=== PATIENT | female | born 1995 | race Caucasian/White ===

== ENCOUNTER 2018-12-27 12:46 | Emergency (ER) | payer BC, OTHER ==
[2018-12-27 12:59] VITALS: TEMP 98.1
[2018-12-27 13:49] LABS: Appearance,Urine Clear (Clear); Bilirubin,Urine Negative (Negative); Blood,Urine Negative (Negative); Color,Urine Yellow; Glucose,Urine (UA) Negative (Negative); Ketones,Urine Negative (Negative); Leukocyte Esterase,Urine Negative (Negative); Nitrite,Urine Negative (Negative); Protein,Urine Negative (Negative); Specific Gravity,Urine 1.005 (1.001-1.035); Urobilinogen,Urine <2.0 mg/dL (<2.0)
[2018-12-27 13:57] LABS: ALT 21 U/L (9-52); AST 30 U/L (14-36); African American GFR (CKD) >90 (>60 ml/min/1.73 sqM); Albumin 4.6 g/dL (3.5-5.0); Alkaline Phosphatase 42 U/L (38-126); Amylase 52 U/L (30-110); Anion Gap 9 mmol/L; Blood Urea Nitrogen 14 mg/dL (7-17); Calcium 9.4 mg/dL (8.4-10.2); Carbon Dioxide 26 mmol/L (22-30); Chloride 106 mmol/L (98-107); Glucose 86 mg/dL (74-99); Potassium 4.3 mmol/L (3.5-5.1); Sodium 141 mmol/L (137-145); Total Bilirubin 0.6 mg/dL (0.2-1.3); Total Protein 7.4 g/dL (6.3-8.2)
[2018-12-27] MEDS ORDERED: ONDANSETRON 4 MG/2 ML VIAL IVP STA (13:59)
[2018-12-27] MEDS ORDERED: KETOROLAC 30 MG/ML 1 ML VIAL IVP STA (13:59)
[2018-12-27] MEDS ORDERED: SODIUM CHLORIDE 0.9% 1,000 ML IV STA (14:00)
--- NOTE | 2018-12-27 14:17 | ED ---
General Adult HPI - General Chief complaint: Abdominal Pain Stated complaint: Abd pain Time Seen by Provider: 12/27/18 13:16 Source: patient, RN notes reviewed Mode of arrival: ambulatory Limitations: no limitations - History of Present Illness Initial comments: 23-year-old female without any [id number] year old female with a past medical history of asthma, GERD, ulcers, chronic constipation presents to the emergency department for a chief complaint of abdominal pain. Patient states that yesterday she felt nauseous all day. States that she started to have diarrhea as well at some point yesterday. Patient states she is having severe lower abd ominal pain. States yesterday this was around her umbilicus and today is more in her right lower quadrant. She also feels it in the right lower back. Denies fevers or chills. Denies history of ovarian cysts. Denies any dysuria.Patient has no other complaints at this time including shortness of breath, chest pain, headache, or visual changes. - Related Data Home Medications Medication Instructions Recorded Confirmed Fiber Gummies 2 tab PO DAILY PRN 07/05/15 07/05/15 Previous Rx's Medication Instructions Recorded Omeprazole [PriLOSEC] 40 mg PO AC-BRKFST #30 cap 07/07/15 Ondansetron [Zofran] 4 mg PO Q8HR PRN #10 tab 07/07/15 Ondansetron [Zofran ODT] 4 mg PO Q8HR PRN #15 tab 12/27/18 Allergies Allergy/AdvReac Type Severity Reaction Status Date / Time No Known Allergies Allergy Verified 12/27/18 12:57 Review of Systems ROS Statement: Those systems with pertinent positive or pertinent negative responses have been documented in the HPI. ROS Other: All systems not noted in ROS Statement are negative. Past Medical History Past Medical History: Asthma, GERD/Reflux Additional Past Medical History / Comment(s): ulcers, outgrown childhood asthma History of Any Multi-Drug Resistant Organisms: None Reported Past Surgical History: Tonsillectomy Past Psychological History: Anxiety Smoking Status: Never smoker Past Alcohol Use History: None Reported Past Drug Use History: None Reported - Past Family History Mother History Unknown: Yes Family Medical History: GERD/Reflux Additional Family Medical History / Comment(s): mom ulcerative colitis, pancreatitis, esohagitis, hiatal hernia General Exam Limitations: no limitations General appearance: alert, in no apparent distress Head exam: Present: atraumatic, normocephalic, normal inspection Eye exam: Present: normal appearance, PERRL, EOMI. Absent: scleral icterus, conjunctival injection, periorbital swelling ENT exam: Present: normal exam, mucous membranes moist Neck exam: Present: normal inspection, full ROM. Absent: tenderness, meningismus, lymphadenopathy Respiratory exam: Present: normal lung sounds bilaterally. Absent: respiratory distress, wheezes, rales, rhonchi, stridor Cardiovascular Exam: Present: regular rate, normal rhythm, normal heart sounds. Absent: systolic murmur, diastolic murmur, rubs, gallop, clicks GI/Abdominal exam: Present: soft, tenderness (Tenderness noted to the right lower quadrant suprapubic area), normal bowel sounds. Absent: distended, guarding, rebound, rigid Expanded GI/Abdominal exam: Present: obturator sign, Rovsing's sign, tenderness at McBurney's Point. Absent: heel tap sign, Prado's sign Neurological exam: Present: alert, oriented X3 Psychiatric exam: Present: normal affect, normal mood Course Vital Signs 12/27/18 12/27/18 12:58 15:58 Temperature 98.1 F Pulse Rate 87 76 Respiratory 18 16 Rate Blood Pressure 146/87 111/64 O2 Sat by Pulse 100 99 Oximetry Medical Decision Making - Medical Decision Making 23 old female with a past medical history of asthma, GERD, ulcers, chronic constipation presents to the emergency department for abdominal pain. States that yesterday she felt nauseous all day. States she started to have diarrhea as well. States she started having lower abdominal pain. Patient states this started around her umbilicus and migrated to her right lower quadrant. Also feels it in her right lower back. Denies fevers or chills. In exam patient does have right lower quadrant tenderness with a positive obturator sign. CBC CMP and urine are unremarkable. CT abdomen and pelvis shows with contrast shows fluid in the pelvis that may be physiologic. No evidence of appendicitis. She likely has a viral gastroenteritis. She was given IV hydration, antiemetics and pain medication. Patient currently then much better. She'll be discharged home with Zofran. Recommended follow up with primary care in 1-2 days. Recommended returning here if pain worsens or she has any other concerning symptoms. - Lab Data Result diagrams: 12/27/18 14:00 12/27/18 13:38 Lab Results 12/27/18 12/27/18 12/27/18 Range/Units 13:38 13:38 13:38 WBC (3.8-10.6) k/uL RBC (3.80-5.40) m/uL Hgb (11.4-16.0) gm/dL Hct (34.0-46.0) % MCV (80.0-100.0) fL MCH (25.0-35.0) pg MCHC (31.0-37.0) g/dL RDW (11.5-15.5) % Plt Count (150-450) k/uL Neutrophils % % Lymphocytes % % Monocytes % % Eosinophils % % Basophils % % Neutrophils # (1.3-7.7) k/uL Lymphocytes # (1.0-4.8) k/uL Monocytes # (0-1.0) k/uL Eosinophils # (0-0.7) k/uL Basophils # (0-0.2) k/uL Sodium 141 (137-145) mmol/L Potassium 4.3 (3.5-5.1) mmol/L Chloride 106 (98-107) mmol/L Carbon Dioxide 26 (22-30) mmol/L Anion Gap 9 mmol/L BUN 14 (7-17) mg/dL Creatinine 0.88 (0.52-1.04) mg/dL Est GFR (CKD-EPI)AfAm >90 (>60 ml/min/1.73 sqM) Est GFR (CKD-EPI)NonAf >90 (>60 ml/min/1.73 sqM) Glucose 86 (74-99) mg/dL Plasma Lactic Acid Deuce 1.1 (0.7-2.0) mmol/L Calcium 9.4 (8.4-10.2) mg/dL Total Bilirubin 0.6 (0.2-1.3) mg/dL AST 30 (14-36) U/L ALT 21 (9-52) U/L Alkaline Phosphatase 42 (38-126) U/L Total Protein 7.4 (6.3-8.2) g/dL Albumin 4.6 (3.5-5.0) g/dL Amylase 52 (30-110) U/L Lipase 114 (23-300) U/L Urine Color Urine Appearance (Clear) Urine pH (5.0-8.0) Ur Specific [place] (1.001-1.035) Urine Protein (Negative) Urine Glucose (UA) (Negative) Urine Ketones (Negative) Urine Blood (Negative) Urine Nitrite (Negative) Urine Bilirubin (Negative) Urine Urobilinogen (<2.0) mg/dL Ur Leukocyte Esterase (Negative) Urine HCG, Qual Not Detected (Not Detectd) 12/27/18 12/27/18 Range/Units 13:38 14:00 WBC 5.0 (3.8-10.6) k/uL RBC 4.83 (3.80-5.40) m/uL Hgb 14.8 (11.4-16.0) gm/dL Hct 45.2 (34.0-46.0) % MCV 93.7 (80.0-100.0) fL MCH 30.7 (25.0-35.0) pg MCHC 32.7 (31.0-37.0) g/dL RDW 14.6 (11.5-15.5) % Plt Count 190 (150-450) k/uL Neutrophils % 55 % Lymphocytes % 31 % Monocytes % 9 % Eosinophils % 2 % Basophils % 1 % Neutrophils # 2.7 (1.3-7.7) k/uL Lymphocytes # 1.5 (1.0-4.8) k/uL Monocytes # 0.4 (0-1.0) k/uL Eosinophils # 0.1 (0-0.7) k/uL Basophils # 0.0 (0-0.2) k/uL Sodium (137-145) mmol/L Potassium (3.5-5.1) mmol/L Chloride (98-107) mmol/L Carbon Dioxide (22-30) mmol/L Anion Gap mmol/L BUN (7-17) mg/dL Creatinine (0.52-1.04) mg/dL Est GFR (CKD-EPI)AfAm (>60 ml/min/1.73 sqM) Est GFR (CKD-EPI)NonAf (>60 ml/min/1.73 sqM) Glucose (74-99) mg/dL Plasma Lactic Acid Deuce (0.7-2.0) mmol/L Calcium (8.4-10.2) mg/dL Total Bilirubin (0.2-1.3) mg/dL AST (14-36) U/L ALT (9-52) U/L Alkaline Phosphatase (38-126) U/L Total Protein (6.3-8.2) g/dL Albumin (3.5-5.0) g/dL Amylase (30-110) U/L Lipase (23-300) U/L Urine Color Yellow Urine Appearance Clear (Clear) Urine pH 7.0 (5.0-8.0) Ur Specific [place] 1.005 (1.001-1.035) Urine Protein Negative (Negative) Urine Glucose (UA) Negative (Negative) Urine Ketones Negative (Negative) Urine Blood Negative (Negative) Urine Nitrite Negative (Negative) Urine Bilirubin Negative (Negative) Urine Urobilinogen <2.0 (<2.0) mg/dL Ur Leukocyte Esterase Negative (Negative) Urine HCG, Qual (Not Detectd) Disposition Clinical Impression: Nausea vomiting and diarrhea, Abdominal pain Disposition: HOME SELF-CARE Condition: Good Instructions (If sedation given, give patient instructions): Abdominal Pain (ED) Additional Instructions: Take Zofran as needed. Please follow up with primary care in 1-2 days. Please return to the emergency department if you have any worsening symptoms. Prescriptions: Ondansetron [Zofran ODT] 4 mg PO Q8HR PRN #15 tab PRN Reason: Nausea Is patient prescribed a controlled substance at d/c from ED?: No Referrals: Nonstaff,Physician [Primary Care Provider] - 1-2 days Time of Disposition: 15:49
[2018-12-27 14:56] LABS: Basophils % (A) 1 %; Eosinophils # (A) 0.1 k/uL (0-0.7); Eosinophils % (A) 2 %; HCT 45.2 % (34.0-46.0); HGB 14.8 gm/dL (11.4-16.0); Lymphocytes # (A) 1.5 k/uL (1.0-4.8); Lymphocytes % (A) 31 %; MCH 30.7 pg (25.0-35.0); MCHC 32.7 g/dL (31.0-37.0); MCV 93.7 fL (80.0-100.0); Mean Platelet Volume 7.5; Monocytes # (A) 0.4 k/uL (0-1.0); Monocytes % (A) 9 %; Neutrophils # (A) 2.7 k/uL (1.3-7.7); Neutrophils % (A) 55 %; Platelet Count 190 k/uL (150-450); RBC 4.83 m/uL (3.80-5.40); RDW 14.6 % (11.5-15.5)
--- NOTE | 2018-12-27 15:26 | CT ---
EXAMINATION TYPE: CT abdomen pelvis w con DATE OF EXAM: 12/27/2018 COMPARISON: CT 07/05/2015 HISTORY: Right lower quadrant pain CT DLP: 526.5 mGycm Automated exposure control for dose reduction was used. TECHNIQUE: Helical acquisition of images from the lung bases through the pelvis have been completed. CONTRAST: Performed without Oral Contrast and with IV Contrast, patient injected with 100 mL of Isovue 300. FINDINGS: LUNG BASES: No significant abnormality is appreciated. AORTA: No significant abnormality is appreciated. LIVER/GB: No significant abnormality is appreciated. PANCREAS: No significant abnormality is seen. SPLEEN: No significant abnormality is seen. ADRENALS: No significant abnormality is seen. KIDNEYS: No significant abnormality is seen. REPRODUCTIVE ORGANS: No significant abnormality is evident within the uterus, there are likely follic les associated with the ovaries BOWEL: No significant abnormality is seen. No evident appendicitis. FREE AIR: No Free Air visible. ASCITES: There is some free fluid noted within the pelvis.. PELVIC ADENOPATHY: None visualized. RETROPERITONEAL ADENOPATHY: No Retroperitoneal Adenopathy visible. URINARY BLADDER: No significant abnormality is seen. OSSEOUS STRUCTURES: No significant abnormality is seen. IMPRESSION: FLUID IN THE PELVIS MAY BE PHYSIOLOGIC.
[2018-12-27] MEDS ORDERED: MORPHINE SULFATE 4 MG/ML SYRINGE IVP STA (15:58)
[2018-12-27 16:00] VITALS: BP 111/64; PULSE 76; RESP 16
== END 2018-12-27 16:30 | disposition home or self-care (01) ==
LOC: EC 12:46
DX: R10.31 Right lower quadrant pain (principal); R11.2 Nausea with vomiting, unspecified; R19.7 Diarrhea, unspecified
CPT/HCPCS: 36415; 80053; 82150; 83605; 83690; 85025; 81003; 81025; 74177; 99284; 96374; 96375 ×2; J2270; J2405; J1885; Q9967

== ENCOUNTER → 2019-04-22 | Outpatient (CLI) | payer BC ==
[2019-04-22 11:11] LABS: Basophils # (A) 0.1 k/uL (0-0.2); Basophils % (A) 1 %; Eosinophils % (A) 0 %; HGB 14.1 gm/dL (11.4-16.0); Lymphocytes # (A) 2.5 k/uL (1.0-4.8); Lymphocytes % (A) 39 %; MCH 30.6 pg (25.0-35.0); MCHC 32.8 g/dL (31.0-37.0); MCV 93.4 fL (80.0-100.0); Mean Platelet Volume 7.1; Monocytes # (A) 0.3 k/uL (0-1.0); Monocytes % (A) 5 %; Neutrophils # (A) 3.4 k/uL (1.3-7.7); Neutrophils % (A) 52 %; Platelet Count 211 k/uL (150-450); RBC 4.61 m/uL (3.80-5.40); RDW 11.5 % (11.5-15.5); WBC 6.5 k/uL (3.8-10.6)
[2019-04-22 14:11] LABS: Total Eosinophil Count 19 #EOS/uL (150-300)
[2019-04-22 20:01] LABS: Immunoglobulin E 1.59 IU/mL (0.00-114.00)
[2019-04-22 20:31] LABS: Cat Epith & Dander IgE <0.10 kU/L; Dermato. farinae IgE <0.10 kU/L; Dog Dander IgE <0.10 kU/L
[2019-04-22 20:32] LABS: Alternaria alternata IgE <0.10 kU/L; Aspergillus fumagatus IgE <0.10 kU/L; Cladosporian herbarum IgE <0.10 kU/L; Cockroach IgE <0.10 kU/L; Maple (Box Elder) IgE <0.10 kU/L
[2019-04-22 20:34] LABS: Birch IgE <0.10 kU/L; Elm IgE <0.10 kU/L; Oak IgE <0.10 kU/L; Ragweed,Common IgE <0.10 kU/L; Red Top (Bentgrass) IgE <0.10 kU/L
== END | disposition home or self-care (01) ==
LOC: LABWHC1 10:28
PROVIDERS: ATTEND Internal Medicine
DX: J45.991 Cough variant asthma (principal)
CPT/HCPCS: 36415; 82785; 85008; 85025; 86003

== ENCOUNTER → 2019-05-07 | Outpatient (CLI) | payer BC ==
--- NOTE | 2019-05-07 14:58 | CT ---
EXAMINATION TYPE: CT sinus wo con DATE OF EXAM: 05/07/2019 COMPARISON: NONE HISTORY: Chronic sinusitis per order. Nasal congestion and tripping with headaches since September. CT DLP: 648.7 mGycm. Automated Exposure Control for Dose Reduction was Utilized. TECHNIQUE: CT scan of the sinuses is performed without contrast, axial images are obtained, coronal r eformatted images are also reviewed. FINDINGS: The mucosal thickening right maxillary sinus with air-fluid level is present. There is air- fluid level dependently in the left sphenoid sinus. There is some patchy dependent fluid in the poste rior right ethmoid sinus axial image 32. Bilateral frontal sinuses are clear. The ostiomeatal comple x is patent bilaterally on coronal image 18. Visualized portion of mastoid air cells show no abnormal opacification. The globes are intact bilate rally. Visualized brain parenchyma unremarkable. IMPRESSION: Bilateral acute paranasal sinus disease as detailed above.
== END | disposition home or self-care (01) ==
LOC: RADCTMAIN 14:33
PROVIDERS: ATTEND Internal Medicine
DX: J34.89 Other specified disorders of nose and nasal sinuses (principal)
CPT/HCPCS: 70486

== ENCOUNTER 2023-01-14 13:05 | Outpatient (CLI) | payer BC ==
[2023-01-14 15:01] VITALS: BP 124/73; PULSE 81; RESP 16; TEMP 97.8
--- NOTE | 2023-02-12 07:33 | P.MSEPDOC ---
Presenting Problems - Arrival Data Date of Arrival on Unit: 01/14/23 Time of Arrival on Unit: 13:01 Mode of Transport: Wheelchair - Complaint OB-Reason for Admission/Chief Complaint: Other Comment: pt arrived c/o possible carbon monoxide posioning. states she was working upstairs in a garage and around 930 am when they ran a 4 guillaume with the fumes and she got a little dizzy and lightheaded and a h/a .so she came in to be evualted. pts vitals sigs b/p 124/73 pulse 92 resp 16 andpulse ox 99%. pt alert orinted times 3 Medical History - Information : 1 Para: 0 Term: 0 : 0 Abortions: Spontaneous or Elective: 0 Number of Living Children: 0 - Gestational Age Gestational Age by DIAZ (wks/days): 29 Weeks and 5 Days Review of Systems - Review of Systems Constitutional: No problems Breast: No problems ENT: No problems Cardiovascular: No problems Respiratory: No problems Gastrointestinal: No problems Genitourinary: No problems Musculoskeletal: No problems Neurological: No problems Skin: No problems Comment: pt c/o of a H/A Vital Signs - Temperature Temperature: 97.8 F Temperature Source: Oral - Pulse Right Brachial Pulse Rate: 81 Pulse Assessment Method: Automatic Cuff - Respirations Respiratory Rate: 16 Oxygen Delivery Method: Room Air O2 Sat by Pulse Oximetry: 99 - Blood Pressure Right Arm Blood Pressure: 124/73 Blood Pressure Mean: 90 Blood Pressure Source: Automatic Cuff Medical Screen Scoring - Cervical Exam Membranes: Intact - Uterine Contractions Frequency From (mins): 0 Frequency To (mins): 0 Resting: Soft to palpation - Assessment - Baby A Baseline FHR: 130 Heart Rate - NICHD Category: Category I (Normal) NST: Reactive Physician Notification - Physician Notified Physician Notified Date: 01/14/23 Physician Notified Time: 14:15 Physician: DR LIDIA Beavers Order Received: Yes - Notification Comment Comment: MAY DISCHARGE TO HOME WITH INSTRUCTIONS Maternal Triage Index - Non-Urgent/Priority 4 Non-Urgent Priority 4: Yes Criteria Met for Priority 4: PT C/O POSSIBLE CARBONMONOXIDE POISIONING. PTS VITALS STABLE PT ALERT ORIENTED TIMES 3 RESP EASY AND UNLABORED. REACTIVE NST. PT STATES H/A IS LESS NOW SINCE THIS MORNING Disposition - Disposition OB Disposition: Discharge to home Discharge Date: 01/14/23 Discharge Time: 14:47 I agree with the RN Medical Screening Exam: Yes Case reviewed; plan agreed upon as documented in EMR&OBIX.: Yes Diagnosis: DIZZINESS AND GIDDINESS
== END 2023-01-14 14:47 | disposition home or self-care (01) ==
LOC: FBPOP 13:05
PROVIDERS: ATTEND Obstetrics & Gynecology
DX: O26.893 Other specified pregnancy related conditions, third trimester (principal); R42 Dizziness and giddiness; Z3A.29 29 weeks gestation of pregnancy; Z88.2 Allergy status to sulfonamides; Z88.8 Allergy status to other drugs, medicaments and biological substances
CPT/HCPCS: 59025; 99213

== ENCOUNTER 2023-03-07 11:47 | Outpatient (CLI) | payer BC ==
[2023-03-07 13:41] VITALS: BP 131/79; PULSE 96; RESP 18; TEMP 96.4
--- NOTE | 2023-03-09 13:02 | P.MSEPDOC ---
Presenting Problems - Arrival Data Date of Arrival on Unit: 03/07/23 Time of Arrival on Unit: 11:47 Mode of Transport: Wheelchair - Complaint OB-Reason for Admission/Chief Complaint: Possible Onset of Labor Comment: Pt states started 03/07/2023 at 0300 ctx, spotting, every 7-10 minutes Medical History - Information : 1 Para: 0 Term: 0 : 0 Abortions: Spontaneous or Elective: 0 Number of Living Children: 0 - Gestational Age Gestational Age by DIAZ (wks/days): 37 Weeks and 1 Days Review of Systems - Review of Systems Constitutional: No problems Breast: No problems ENT: No problems Cardiovascular: No problems Respiratory: No problems Gastrointestinal: No problems Genitourinary: No problems Musculoskeletal: No problems Neurological: No problems Skin: No problems Vital Signs - Temperature Temperature: 96.4 F Temperature Source: Temporal Artery Scan - Pulse Right Pulse Rate: 96 Pulse Assessment Method: Automatic Cuff - Respirations Respiratory Rate: 18 Oxygen Delivery Method: Room Air O2 Sat by Pulse Oximetry: 97 - Blood Pressure Right Arm Blood Pressure: 131/79 Blood Pressure Mean: 96 Blood Pressure Source: Automatic Cuff Medical Screen Scoring - Cervical Exam Dilation (cm): 1 Effacement (%): 50 Station: -2 Membranes: Intact - Uterine Contractions Frequency From (mins): 1 Frequency To (mins): 4 Duration From (seconds): 60 Duration To (seconds): 80 Intensity: Moderate Resting: Soft to palpation - Assessment - Baby A Baseline FHR: 145 Heart Rate - NICHD Category: Category I (Normal) NST: Reactive Physician Notification - Physician Notified Physician Notified Date: 03/07/23 Physician Notified Time: 13:07 Physician: Akilah Hidalgo New Order Received: Yes - Notification Comment Comment: D/C order Maternal Triage Index - Maternal Triage Index Presenting for scheduled procedure w/no complaint: No - Stat/Priority 1 Stat Priority 1: No - Urgent/Priority 2 Urgent Priority 2: No - Prompt/Priority 3 Prompt Priority 3: No - Non-Urgent/Priority 4 Non-Urgent Priority 4: Yes Criteria Met for Priority 4: 37 1/7 weeks, rule out labor with spotting Disposition - Disposition OB Disposition: Discharge to home Discharge Date: 03/07/23 Discharge Time: 13:12 I agree with the RN Medical Screening Exam: Yes Case reviewed; plan agreed upon as documented in EMR&OBIX.: Yes Diagnosis: PRIMARY INADEQUATE CONTRACTIONS
== END 2023-03-07 13:12 | disposition home or self-care (01) ==
LOC: FBPOP 11:47
PROVIDERS: ATTEND Obstetrics & Gynecology
DX: O62.0 Primary inadequate contractions (principal); O26.853 Spotting complicating pregnancy, third trimester; Z3A.37 37 weeks gestation of pregnancy; Z88.2 Allergy status to sulfonamides; Z88.1 Allergy status to other antibiotic agents
CPT/HCPCS: 84112; 99213

== ENCOUNTER 2023-03-08 12:26 | Outpatient (CLI) | payer BC ==
[2023-03-08 13:10] VITALS: BP 135/71; PULSE 94; RESP 16; TEMP 98.7
--- NOTE | 2023-03-09 13:02 | P.MSEPDOC ---
Presenting Problems - Arrival Data Date of Arrival on Unit: 03/08/23 Time of Arrival on Unit: 12:30 Mode of Transport: Ambulatory - Complaint OB-Reason for Admission/Chief Complaint: Possible Onset of Labor Medical History - Information : 1 Para: 0 Term: 0 : 0 Abortions: Spontaneous or Elective: 0 Number of Living Children: 0 - Gestational Age Gestational Age by DIAZ (wks/days): 37 Weeks and 2 Days Review of Systems - Review of Systems Constitutional: No problems Breast: No problems ENT: No problems Cardiovascular: No problems Respiratory: No problems Gastrointestinal: No problems Genitourinary: No problems Musculoskeletal: No problems Neurological: No problems Skin: No problems Vital Signs - Temperature Temperature: 98.7 F Temperature Source: Oral - Pulse Sitting Pulse Rate: 94 Pulse Assessment Method: Automatic Cuff - Respirations Respiratory Rate: 16 Oxygen Delivery Method: Room Air - Blood Pressure Right Arm Blood Pressure: 135/71 Blood Pressure Mean: 92 Blood Pressure Source: Automatic Cuff Medical Screen Scoring - Cervical Exam Dilation (cm): 1 Effacement (%): 70 Membranes: Intact - Uterine Contractions Intensity: Mild - Assessment - Baby A Baseline FHR: 140 Heart Rate - NICHD Category: Category I (Normal) Physician Notification - Physician Notified Physician Notified Date: 03/08/23 Physician Notified Time: 12:59 Physician: Akilah Hidalgo New Order Received: Yes Maternal Triage Index - Non-Urgent/Priority 4 Non-Urgent Priority 4: Yes Criteria Met for Priority 4: 03-08-23@1300 DR HIDALGO Disposition - Disposition OB Disposition: Discharge to home Discharge Date: 03/08/23 Discharge Time: 14:09 I agree with the RN Medical Screening Exam: Yes Case reviewed; plan agreed upon as documented in EMR&OBIX.: Yes Diagnosis: PRIMARY INADEQUATE CONTRACTIONS
== END 2023-03-08 14:09 | disposition home or self-care (01) ==
LOC: FBPOP 12:26
PROVIDERS: ATTEND Obstetrics & Gynecology
DX: O62.0 Primary inadequate contractions (principal); Z3A.37 37 weeks gestation of pregnancy; Z88.2 Allergy status to sulfonamides; Z88.1 Allergy status to other antibiotic agents
CPT/HCPCS: 59025; 99213

== ENCOUNTER 2023-03-11 11:50 | Observation (INO) | payer BC ==
[2023-03-11 13:06] VITALS: RESP 16
[2023-03-11 13:18] LABS: Appearance,Urine Clear (Clear); Bilirubin,Urine Negative (Negative); Blood,Urine Negative (Negative); Color,Urine Colorless; Glucose,Urine (UA) Negative (Negative); Ketones,Urine Negative (Negative); Leukocyte Esterase,Urine Negative (Negative); Nitrite,Urine Negative (Negative); Protein,Urine Negative (Negative); Specific Gravity,Urine 1.008 (1.001-1.035); Urobilinogen,Urine <2.0 mg/dL (<2.0)
[2023-03-11] MEDS: LACTATED RINGERS 1,000 ML IV SCH ×3 (13:23→23:14)
[2023-03-11] MEDS: HYDROmorphone 1 MG/ML 1 ML SYRINGE IVP PRN ×2 (13:29→19:46)
[2023-03-11 16:46] VITALS: BP 122/75; PULSE 75; TEMP 97.7
[2023-03-11] MEDS ORDERED: ONDANSETRON 4 MG/2 ML VIAL IVP PRN (19:18)
[2023-03-11] MEDS ORDERED: CITRIC ACID-SODIUM CITRATE 15 ML CUP PO ONE (19:18)
[2023-03-12] MEDS: LACTATED RINGERS 1,000 ML IV SCH (06:20)
== END 2023-03-12 08:37 | disposition home or self-care (01) ==
LOC: FBPOP 11:50 → 4FBP 12:44
PROVIDERS: ADMIT Obstetrics & Gynecology; ATTEND Obstetrics & Gynecology
DX: O47.1 False labor at or after 37 completed weeks of gestation (principal); Z3A.37 37 weeks gestation of pregnancy
CPT/HCPCS: 59025; 96376; 99213; 96374; 96375; 81003; G0378 ×2; J2405; J1170

== ENCOUNTER 2023-03-15 08:23 | Inpatient (IN) | payer BC ==
[2023-03-15] MEDS ORDERED: TRANEXAMIC 1,000 MG/100ML-NACL 1,000 MG in EMPTY BAG 1 BAG IV PRN (09:42)
[2023-03-15] MEDS ORDERED: LIDOCAINE 0.5% (PF) 5 MG/ML (50 ML SDV) SQ PRN (09:42)
[2023-03-15] MEDS ORDERED: CARBOPROST TROMETHAMINE 250 MCG/ML 1 ML AMP IM PRN (09:42)
[2023-03-15] MEDS ORDERED: METHYLERGONOVINE 0.2 MG/ML 1 ML AMP IM PRN (09:42)
[2023-03-15] MEDS ORDERED: OXYTOCIN 10 UNIT/ML 1 ML VIAL IM PRN (09:42)
[2023-03-15] MEDS ORDERED: TERBUTALINE 1 MG/ML VIAL SQ PRN (09:42)
[2023-03-15] MEDS ORDERED: miSOPROStoL 200 MCG TAB PO PRN (09:42)
--- NOTE | 2023-03-15 09:43 | P.HPOB ---
History of Present Illness H&P Date: 03/15/23 Chief Complaint: Latent labor 28-year-old presents at 38 weeks and 2 days. She's been complaining of contractions for the last week to 2 weeks. She has been admitted for pain control but that did not calm down her contractions. She is now not getting any sleep and has been in latent phase of labor and a prolonged fashion. I will admit the patient and augment her labor with Pitocin and amniotomy. Review of Systems All systems: negative Constitutional: Denies chills, Denies fever Eyes: denies blurred vision, denies pain Ears, nose, mouth and throat: Denies headache, Denies sore throat Cardiovascular: Denies chest pain, Denies shortness of breath Respiratory: Denies cough Gastrointestinal: Denies abdominal pain, Denies diarrhea, Denies nausea, Denies vomiting Genitourinary: Denies dysuria, Denies hematuria Musculoskeletal: Denies myalgias Integumentary: Denies pruritus, Denies rash Neurological: Denies numbness, Denies weakness Psychiatric: Denies anxiety, Denies depression Endocrine: Denies fatigue, Denies weight change Past Medical History Past Medical History: Asthma, GERD/Reflux Additional Past Medical History / Comment(s): ulcers, outgrown childhood asthma History of Any Multi-Drug Resistant Organisms: None Reported Past Surgical History: Tonsillectomy Past Anesthesia/Blood Transfusion Reactions: No Reported Reaction Smoking Status: Never smoker - Past Family History Mother History Unknown: Yes Family Medical History: GERD/Reflux Additional Family Medical History / Comment(s): mom ulcerative colitis, pancreatitis, esohagitis, hiatal hernia Medications and Allergies Home Medications Medication Instructions Recorded Confirmed Type Vit No.179/Iron/Folic 1 tab PO ONCE 01/14/23 03/15/23 History [ Tablet] Allergies Allergy/AdvReac Type Severity Reaction Status Date / Time sulfamethoxazole AdvReac Nausea Verified 03/15/23 08:53 [From Bactrim] trimethoprim [From Bactrim] AdvReac Nausea Verified 03/15/23 08:53 Exam Osteopathic Statement: *. No significant issues noted on an osteopathic structural exam other than those noted in the History and Physical/Consult. Vital Signs Temp Pulse Resp BP Pulse Ox 03/15/23 08:52 96.4 F L 109 H 16 135/84 100 Intake and Output 03/14/23 03/15/23 03/15/23 22:59 06:59 14:59 Other: Weight 102.058 kg Heart: Regular rate and rhythm Lungs: Clear to auscultation bilaterally Abdomen: Soft, nontender Extremities: Negative Homans sign Assessment and Plan (1) Prolonged latent phase of labor Current Visit: Yes Status: Acute Code(s): O63.0 - PROLONGED FIRST STAGE (OF LABOR) SNOMED Code(s): 557745448 Plan: 1. Augment labor with amniotomy and Pitocin 2. Anticipate normal vaginal delivery
[2023-03-15] MEDS ORDERED: OXYTOCIN 30 UNITS/500 ML NS 30 UNIT in SALINE 1 500ML.BAG IV SCH (09:45)
[2023-03-15] MEDS: LACTATED RINGERS 1,000 ML IV SCH ×2 (10:00→12:14)
[2023-03-15 10:17] LABS: Basophils % (A) 0 %; Eosinophils # (A) 0.1 k/uL (0-0.7); Eosinophils % (A) 1 %; HCT 36.9 % (34.0-46.0); HGB 12.1 gm/dL (11.4-16.0); Lymphocytes # (A) 1.7 k/uL (1.0-4.8); Lymphocytes % (A) 15 %; MCH 30.3 pg (25.0-35.0); MCHC 32.9 g/dL (31.0-37.0); MCV 91.9 fL (80.0-100.0); Mean Platelet Volume 8.9; Monocytes # (A) 0.6 k/uL (0-1.0); Monocytes % (A) 5 %; Neutrophils # (A) 8.8 k/uL (1.3-7.7); Neutrophils % (A) 76 %; Platelet Count 206 k/uL (150-450); RBC 4.02 m/uL (3.80-5.40); RDW 13.3 % (11.5-15.5); WBC 11.6 k/uL (3.8-10.6)
[2023-03-15] MEDS ORDERED: SODIUM CHLORIDE 0.9% 250 ML BAG ONE (11:55)
[2023-03-15] MEDS ORDERED: fentaNYL (PF) 50 MCG/ML 5 ML AMP ONE (11:55)
[2023-03-15] MEDS ORDERED: ROPIVACAINE 5 MG/ML 30 ML VIAL ONE (11:55)
[2023-03-15] MEDS ORDERED: ACETAMINOPHEN TAB 325 MG TAB PO PRN (18:41)
[2023-03-15] MEDS ORDERED: diphenhydrAMINE 25 MG CAP PO PRN (18:41)
[2023-03-15] MEDS ORDERED: diphenhydrAMINE 50 MG/ML 1 ML VIAL IVP PRN ×2 (18:41)
[2023-03-15] MEDS ORDERED: HYDROCORTISONE 2.5% RECTAL CREAM 30 GM TUBE RECTAL PRN (18:41)
[2023-03-15] MEDS ORDERED: BENZOCAINE/MENTHOL SPRAY 1 GM/SPRAY AEROSOL TOPICAL PRN (18:41)
[2023-03-15] MEDS ORDERED: diphenhydrAMINE 50 MG CAP PO PRN (18:41)
[2023-03-15] MEDS ORDERED: ZOLPIDEM 5 MG TAB PO PRN (18:41)
[2023-03-15] MEDS ORDERED: SIMETHICONE 80 MG CHEWABLE PO PRN (18:41)
[2023-03-15] MEDS ORDERED: LANOLIN CREAM 5 GM TUBE TOPICAL PRN (18:41)
[2023-03-15] MEDS: IBUPROFEN 600 MG TAB PO PRN (18:58)
[2023-03-15 19:43] VITALS: RESP 16
[2023-03-15] MEDS: SENNOSIDES-DOCUSATE SODIUM 1 EACH TAB PO SCH (20:12)
[2023-03-16] MEDS: IBUPROFEN 600 MG TAB PO PRN ×3 (00:14→14:08)
[2023-03-16] MEDS: LACTATED RINGERS 1,000 ML IV SCH (03:45)
[2023-03-16 07:49] LABS: Basophils % (A) 0 %; Eosinophils # (A) 0.1 k/uL (0-0.7); Eosinophils % (A) 0 %; HCT 28.7 % (34.0-46.0); Lymphocytes # (A) 1.7 k/uL (1.0-4.8); Lymphocytes % (A) 14 %; MCH 30.9 pg (25.0-35.0); Mean Platelet Volume 9.3; Monocytes # (A) 0.7 k/uL (0-1.0); Monocytes % (A) 6 %; Neutrophils # (A) 8.9 k/uL (1.3-7.7); Neutrophils % (A) 76 %; Platelet Count 179 k/uL (150-450); RBC 3.15 m/uL (3.80-5.40); RDW 13.6 % (11.5-15.5); WBC 11.8 k/uL (3.8-10.6)
[2023-03-16 07:51] LABS: HGB 9.7 gm/dL (11.4-16.0)
[2023-03-16] MEDS: SENNOSIDES-DOCUSATE SODIUM 1 EACH TAB PO SCH (08:17)
--- NOTE | 2023-03-16 11:16 | P.PROBDLV ---
Vaginal Delivery Note - . Vaginal Delivery Note: 28-year-old presents at 38 weeks and 2 days. She's been complaining of contractions for the last week to 2 weeks. She has been admitted for pain control but that did not calm down her contractions. She is now not getting any sleep and has been in latent phase of labor and a prolonged fashion. I will admit the patient and augment her labor with Pitocin and amniotomy. Amniotomy performed at 9:59 AM clear fluid noted. Salazar went by and the patient did not make much progress so Pitocin augmentation was also started. When she was uncomfortable she did get an epidural. Her cervix was completely dilated at 1609. She pushed, delivered a viable male over intact perineum under epidural anesthesia at 1639. Head delivered OA, anterior shoulder delivered gentle downward guidance followed by posterior shoulder and rest of body. Nose and mouth bulb suctioned, cord clamped and cut, infant placed mother's abdomen. Apgars 8, 9, weight 7 lbs. 7 oz. Placenta delivered spontaneously, intact with three-vessel cord at 1642. Vagina, cervix, perineum inspected. Second-degree right lateral laceration was repaired with 3-0 Vicryl. Estimated blood loss 400 mL. She did have a few episodes of atony so her bladder was drained of all urine I massaged her belly after Pitocin had been added to the IV, Methergine was also given. The bleeding slowed down Mother and baby in stable condition.
--- NOTE | 2023-03-16 11:22 | P.DS ---
Providers Date of admission: 03/15/23 09:31 Expected date of discharge: 03/16/23 Attending physician: Akilah Hidalgo Primary care physician: Stated None - Discharge Diagnosis(es) (1) Prolonged latent phase of labor Current Visit: Yes Status: Resolved (2) Normal vaginal delivery Current Visit: Yes Status: Acute Hospital Course: Patient presented in prolonged latent phase. She underwent augmentation of labor and had a normal vaginal delivery. course has been uneventful. She denies nausea, vomiting, chest pain, shortness of breath or calf pain. Patient will be discharged home day #1 in stable condition to follow- up with me in 6 weeks. Plan - Discharge Summary New Discharge Prescriptions: New Ibuprofen [Motrin] 600 mg PO Q6HR PRN #30 tab PRN Reason: Mild Pain Or Fever >= 100.5 No Action Vit No.179/Iron/Folic [ Tablet] 1 tab PO ONCE Discharge Medication List Vit No.179/Iron/Folic [ Tablet] 1 tab PO ONCE 01/14/23 [H istory] Ibuprofen [Motrin] 600 mg PO Q6HR PRN #30 tab 03/16/23 [Rx] Follow up Appointment(s)/Referral(s): Akilah Hidalgo DO [Doctor of Osteopathic Medicine] - 6 Weeks Discharge Disposition: HOME SELF-CARE
[2023-03-16 15:40] VITALS: BP 102/54; PULSE 65; TEMP 98.1
== END 2023-03-16 17:35 | disposition home or self-care (01) | DRG 807 ==
LOC: FBPOP 08:23 → 4FBP 09:31
PROVIDERS: ADMIT Obstetrics & Gynecology; ATTEND Obstetrics & Gynecology
PROC: 10E0XZZ Delivery of Products of Conception, External Approach (ICD-10-PCS; principal; 2023-03-15)
PROC: 0KQM0ZZ Repair Perineum Muscle, Open Approach (ICD-10-PCS; principal; 2023-03-15)
PROC: 10907ZC Drainage of Amniotic Fluid, Therapeutic from Products of Conception, Via Natural or Artificial Opening (ICD-10-PCS; principal; 2023-03-15)
DX: O63.0 Prolonged first stage (of labor) (principal); O70.1 Second degree perineal laceration during delivery; O62.2 Other uterine inertia; O99.52 Diseases of the respiratory system complicating childbirth; J45.909 Unspecified asthma, uncomplicated; Z3A.38 38 weeks gestation of pregnancy; Z37.0 Single live birth
CPT/HCPCS: 59025; 85025; 86850; 86900; 86901; 99213

== ENCOUNTER → 2024-06-16 | Outpatient (CLI) | payer OTHER ==
[2024-06-16 19:06] LABS: Basophils # (A) 0.04 X 10*3/uL (0.00-0.10); Basophils % (A) 0.4 %; Eosinophils # (A) 0.05 X 10*3/uL (0.04-0.35); Eosinophils % (A) 0.5 %; HCT 42.6 % (37.2-46.3); Lymphocytes # (A) 2.26 X 10*3/uL (0.90-5.00); Lymphocytes % (A) 21.6 %; MCH 29.9 pg (27.0-32.0); MCHC 32.9 g/dL (32.0-37.0); Mean Platelet Volume 11.3 FL (9.5-12.2); Monocytes # (A) 0.75 X 10*3/uL (0.20-1.00); Monocytes % (A) 7.2 %; NRBC Per 100 WBC 0 X 10*3/uL (0.00-0.01); Neutrophils # (A) 7.36 X 10*3/uL (1.80-7.70); Neutrophils % (A) 70.1 %; Platelet Count 263 X 10*3/uL (140-440); RBC 4.68 X 10*6/uL (4.10-5.20); RDW 11.9 % (11.5-14.5); WBC 10.48 X 10*3/uL (4.50-10.00)
== END | disposition home or self-care (01) ==
LOC: LABWHC1 12:51
PROVIDERS: ATTEND Obstetrics & Gynecology
DX: Z01.812 Encounter for preprocedural laboratory examination (principal); O02.1 Missed abortion; Z3A.00 Weeks of gestation of pregnancy not specified
CPT/HCPCS: 36415; 85025; 86850; 86900; 86901

== ENCOUNTER 2024-06-17 08:06 | Day surgery (SDC) | payer BC, OTHER ==
[2024-06-15 10:35] VITALS: BMI 32.4
[~2024-06-17 08:06] MED LIST: Pre Op ABX Message 1 EACH MISC MISCELLANE ONE; droPERidol 5 MG/2 ML VIAL IVP ONE
[2024-06-17] MEDS: IV FLUID CONTINUATION 1,000 ML IV ONE (08:24)
[2024-06-17] MEDS: LIDOCAINE 1% (10MG/ML) FOR IV START INTRADERMA PRN (08:42)
[2024-06-17] MEDS: DEXAMETHASONE SOD PHOSPHATE 4 MG/ML 1 ML VIAL IV ONE (08:42)
[2024-06-17] MEDS: ONDANSETRON 4 MG/2 ML VIAL IVP ONE (08:43)
[2024-06-17] MEDS: LACTATED RINGERS 1,000 ML IV SCH (08:43)
[2024-06-17 08:48] LABS: Basophils % (A) 0 %; Eosinophils # (A) 0.1 k/uL (0-0.7); Eosinophils % (A) 1 %; HCT 43.8 % (34.0-46.0); HGB 14.7 gm/dL (11.4-16.0); Lymphocytes # (A) 1.8 k/uL (1.0-4.8); Lymphocytes % (A) 22 %; MCH 30.4 pg (25.0-35.0); MCHC 33.6 g/dL (31.0-37.0); MCV 90.5 fL (80.0-100.0); Mean Platelet Volume 7.9; Monocytes # (A) 0.4 k/uL (0-1.0); Monocytes % (A) 4 %; Neutrophils # (A) 5.8 k/uL (1.3-7.7); Neutrophils % (A) 70 %; Platelet Count 251 k/uL (150-450); RBC 4.84 m/uL (3.80-5.40); RDW 11.7 % (11.5-15.5); WBC 8.2 k/uL (3.8-10.6)
[2024-06-17] MEDS: MIDAZOLAM 2 MG/2 ML VIAL IV ONE (08:57)
[2024-06-17] MEDS: FAMOTIDINE 20 MG/2 ML VIAL IV STA (08:57)
[2024-06-17] MEDS ORDERED: MIDAZOLAM 2 MG/2 ML VIAL ONE (09:11)
[2024-06-17] MEDS ORDERED: fentaNYL (PF) 50 MCG/ML 2 ML AMP ONE (09:11)
[2024-06-17] MEDS ORDERED: KETOROLAC 15 MG/ML 1 ML VIAL ONE (09:11)
[2024-06-17] MEDS ORDERED: LIDOCAINE 1% INJ 10MG/ML (20 ML MDV) ONE (09:11)
[2024-06-17] MEDS ORDERED: PROPOFOL 10 MG/ML 20 ML VIAL IV ONE (09:11)
--- NOTE | 2024-06-17 09:44 | P.OP ---
Date of Procedure: 06/17/24 Preoperative Diagnosis: 1. missed Postoperative Diagnosis: 1. missed Procedure(s) Performed: suction D&C Anesthesia: MAC (LMA) Surgeon: Akilah Hidalgo Estimated Blood Loss (ml): 200 IV fluids (ml): 400 Urine output (ml): 45 Pathology: other (uterine contents/products of conception) Condition: stable Disposition: PACU Description of Procedure: Patient was taken the operating room where general anesthesia was obtained without difficulty. She is prepped draped normal sterile fashion dorsal lithotomy position, legs placed in Brandon stirrups. Bladder was drained of all urine. Weighted speculum placed in vagina the anterior lip of the cervix was grasped with single-tooth tenaculum. The cervix dilated to the #9 Hegar dilator. The #9 curved suction curette was introduced into the uterus and passed several times to remove tissue and blood. Sharp curette was used to ensure all tissue had been removed. The suction curette was placed a few more times. All instruments were removed from the vagina and the uterus. Patient tolerated procedure well. Sponge management counts correct x 2. She was taken to recovery in stable condition.
[2024-06-17] MEDS: HYDROmorphone 0.5 MG/0.5 ML SYRINGE IVP PRN (09:53)
[2024-06-17 09:58] VITALS: TEMP 97.6
[2024-06-17 10:54] VITALS: BP 125/82; PULSE 79; RESP 17
[2024-06-17] MEDS: HYDROcodone/APAP 5-325MG 1 EACH TAB PO ONE (11:03)
== END 2024-06-17 11:18 | disposition home or self-care (01) ==
LOC: OR 08:06
PROVIDERS: ATTEND Obstetrics & Gynecology
DX: O02.1 Missed abortion (principal); N80.9 Endometriosis, unspecified; J45.909 Unspecified asthma, uncomplicated; K21.9 Gastro-esophageal reflux disease without esophagitis; F41.9 Anxiety disorder, unspecified; F43.10 Post-traumatic stress disorder, unspecified; Z88.2 Allergy status to sulfonamides; Z90.89 Acquired absence of other organs; Z79.899 Other long term (current) drug therapy
CPT/HCPCS: 85025; 59820; J2250; J1100; J2405; J2003; J3010; J3490; J1885; J2704; J1171; 88305

== ENCOUNTER → 2024-09-20 | Outpatient (CLI) | payer OTHER ==
--- NOTE | 2024-09-21 08:48 | USB ---
Reason for Exam: Clinical finding. Technique: Method: Whole Breast Handheld. Findings: The whole breast of both breasts, the axilla of both breasts and the retroareolar of both breasts were scanned. A complete US of all four quadrants of the breast and retro-areolar region were reviewed. No solid or cystic masses are identified. Manage clinically. Overall Assessment: Negative, BI-RAD 1 Management: Screening Mammogram of both breasts in 1 year. A clinical breast exam by your physician is recommended on an annual basis and results should be correlated with mammographic findings. This exam should not preclude additional follow-up of suspicious palpable abnormalities. Results were given to the patient verbally at the time of exam. [facility], , 09/20/2024 7:43 AM. Electronically signed and approved by: Parish Campbell M.D. [facility]
== END | disposition home or self-care (01) ==
LOC: RADUSWWP 06:52
PROVIDERS: ATTEND Obstetrics & Gynecology
DX: N63.10 Unspecified lump in the right breast, unspecified quadrant (principal); N63.20 Unspecified lump in the left breast, unspecified quadrant; N60.01 Solitary cyst of right breast; N60.02 Solitary cyst of left breast